=== PATIENT | male | born 1990 | race Caucasian/White ===

== ENCOUNTER 2017-12-28 19:03 | Emergency (ER) | payer SELFPAY ==
[~2017-12-28] VITALS: Ht 182.9 cm; Wt 95.0 kg
[2017-12-28] MEDS ORDERED: PEN-VEE K,VEET500 MG PO (20:30)
[2017-12-28] MEDS ORDERED: ULTRAM50 MG PO (20:30)
[2017-12-28 20:43] VITALS: BP 128/72
== END 2017-12-28 20:45 | disposition home or self-care (01) ==
LOC: EME 19:03
DX: K04.7 Periapical abscess without sinus (principal); Z87.891 Personal history of nicotine dependence; Z91.010 Allergy to peanuts
CPT/HCPCS: 99281; 99284